=== PATIENT | female | born 1960 | race Caucasian/White ===

== ENCOUNTER 2021-07-27 09:42 | Inpatient (IN) ==
[2021-07-27] MEDS ORDERED: Lactated Ringers 1000 ml BAG 1,000 ML IV ONE (09:56)
[2021-07-27] MEDS ORDERED: Albuterol HFA INHALER 8 gm MDI INH ONE (10:27)
[2021-07-27 10:34] LABS: ABS Basophils 0.2 10^3/ul (0-0.2); ABS Eosinophils 0.8 10^3/ul (0-0.6); ABS Lymphocytes 2.3 10^3/ul (1.0-4.8); ABS Monocytes 0.9 10^3/ul (0-0.8); ABS Neutrophils 9.9 10^3/ul (1.5-7.7); Eosinophil % 5.5 %; Hematocrit 25 % (35-47); Hemoglobin 8.3 g/dL (12.0-16.0); Lymphocyte % 16.2 %; Mean Corpuscular HGB Conc 33 g/dL (31-36); Mean Corpuscular Hemoglobin 24 pg (27-31); Mean Corpuscular Volume 74 fL (80-97); Mean Platelet Volume 7.5 fL (7.4-10.4); Platelet Count 693 10^3/uL (150-450); Red Cell Distribution Width 18 % (10-15)
[2021-07-27 10:45] LABS: Albumin 2.6 g/dL (3.2-5.2); Albumin/Globulin Ratio 0.5 (1-3); Calcium 8.6 mg/dL (8.6-10.3); Globulin 5.5 g/dL (2-4); Potassium 4.1 mmol/L (3.5-5.0); Total Bilirubin 0.4 mg/dL (0.2-1.0); Total Protein 8.1 g/dL (6.4-8.9); eGFR CKD-EPI 101.2 (>60)
[2021-07-27] MEDS ORDERED: Iohexol 300 (CONTRAST) 10 ML SDV IV ONE (10:51)
[2021-07-27 14:13] LABS: Urine Appearance Clear; Urine Bilirubin Negative (Negative); Urine Blood 3+ (Negative); Urine Color Yellow; Urine Glucose Negative (Negative); Urine Ketones Negative (Negative); Urine Nitrite Negative (Negative); Urine Protein Negative (Negative); Urine Specific Gravity 1.027 (1.002-1.030); Urine Urobilinogen Negative (Negative)
[2021-07-27 14:19] LABS: Urine Bacteria Absent (Absent); Urine Red Blood Cell 2+(6-10/hpf) (Absent); Urine Squamous Epithelial Cell Present (Absent); Urine White Blood Cell 1+(6-10/hpf) (Absent)
[2021-07-28] MEDS: NON FORMULARY MED (Budesonide-Glycopyr-Formoterol [Breztri Aerosphere] 160-9-4.8 mcg/actua INH SCH ×3 (02:08→20:27)
[2021-07-28 06:41] LABS: Total Iron Binding Capacity 175 mcg/dL (250-450); Transferrin 125 mg/dL (203-362)
[2021-07-28 06:48] LABS: % Iron Saturation 11 % (15-55); Iron < 20 ug/dL (50-212); Unsaturated Iron Binding < 160 ug/dL
[2021-07-28 07:01] LABS: Ferritin 148.2 ng/mL (11-307)
[2021-07-28 08:12] LABS: ABS Basophils 0.2 10^3/ul (0-0.2); ABS Eosinophils 0.6 10^3/ul (0-0.6); ABS Lymphocytes 2.6 10^3/ul (1.0-4.8); ABS Monocytes 1.1 10^3/ul (0-0.8); ABS Neutrophils 6.2 10^3/ul (1.5-7.7); Eosinophil % 5.3 %; Hematocrit 24 % (35-47); Lymphocyte % 24.5 %; Mean Corpuscular HGB Conc 33 g/dL (31-36); Mean Corpuscular Hemoglobin 24 pg (27-31); Mean Corpuscular Volume 74 fL (80-97); Mean Platelet Volume 7.6 fL (7.4-10.4); Platelet Count 627 10^3/uL (150-450); Red Blood Count 3.28 10^6 /uL (3.70-4.87); Red Cell Distribution Width 18 % (10-15); White Blood Count 10.6 10^3/uL (3.5-10.8)
[2021-07-28 08:35] LABS: INR 1.15 (0.86-1.15)
[2021-07-28 08:45] LABS: Calcium 8.4 mg/dL (8.6-10.3); Potassium 3.8 mmol/L (3.5-5.0); eGFR CKD-EPI 89.4 (>60)
[2021-07-28] MEDS ORDERED: Iohexol 300 (CONTRAST) 10 ML SDV IV ONE (13:44)
[2021-07-28] MEDS: Ondansetron 4 mg VIAL 2 MG/ML 2 ml VIAL IV PRN (21:29)
[2021-07-29 06:14] LABS: ABS Basophils 0.2 10^3/ul (0-0.2); ABS Eosinophils 0.9 10^3/ul (0-0.6); ABS Lymphocytes 3.8 10^3/ul (1.0-4.8); ABS Monocytes 1.4 10^3/ul (0-0.8); ABS Neutrophils 9.7 10^3/ul (1.5-7.7); Eosinophil % 5.4 %; Hematocrit 25 % (35-47); Hemoglobin 7.9 g/dL (12.0-16.0); Mean Corpuscular HGB Conc 32 g/dL (31-36); Mean Corpuscular Hemoglobin 24 pg (27-31); Mean Corpuscular Volume 74 fL (80-97); Mean Platelet Volume 7.5 fL (7.4-10.4); Platelet Count 647 10^3/uL (150-450); Red Blood Count 3.31 10^6 /uL (3.70-4.87); Red Cell Distribution Width 18 % (10-15)
[2021-07-29] MEDS: NON FORMULARY MED (Budesonide-Glycopyr-Formoterol [Breztri Aerosphere] 160-9-4.8 mcg/actua INH SCH ×2 (08:20→23:18)
[2021-07-29] MEDS ORDERED: Flu vaccine *QUAD* 2021-22* 0.5 ML SYRINGE IM ONE (09:00)
[2021-07-29] MEDS: Ondansetron 4 mg VIAL 2 MG/ML 2 ml VIAL IV PRN (19:50)
[2021-07-30] MEDS: NON FORMULARY MED (Budesonide-Glycopyr-Formoterol [Breztri Aerosphere] 160-9-4.8 mcg/actua INH SCH ×2 (07:33→20:57)
[2021-07-30 07:40] LABS: ABS Basophils 0.2 10^3/ul (0-0.2); ABS Eosinophils 0.7 10^3/ul (0-0.6); ABS Lymphocytes 2.4 10^3/ul (1.0-4.8); ABS Neutrophils 6.7 10^3/ul (1.5-7.7); Eosinophil % 6.1 %; Hematocrit 23 % (35-47); Hemoglobin 7.5 g/dL (12.0-16.0); Mean Corpuscular HGB Conc 33 g/dL (31-36); Mean Corpuscular Hemoglobin 24 pg (27-31); Mean Corpuscular Volume 74 fL (80-97); Mean Platelet Volume 7.3 fL (7.4-10.4); Platelet Count 562 10^3/uL (150-450); Red Blood Count 3.09 10^6 /uL (3.70-4.87); Red Cell Distribution Width 18 % (10-15); White Blood Count 10.9 10^3/uL (3.5-10.8)
[2021-07-30 07:53] LABS: Calcium 8.4 mg/dL (8.6-10.3); Potassium 4.2 mmol/L (3.5-5.0); eGFR CKD-EPI 89.4 (>60)
[2021-07-30] MEDS ORDERED: NS 0.9% 1000 ml BAG 1,000 ML IV SCH (14:30)
[2021-07-30] MEDS ORDERED: Enoxaparin 40 MG/0.4 ML SYR SUBCUT SCH (15:00)
[2021-07-31] MEDS: NON FORMULARY MED (Budesonide-Glycopyr-Formoterol [Breztri Aerosphere] 160-9-4.8 mcg/actua INH SCH (07:36)
[2021-07-31 08:58] LABS: Calcium 8.1 mg/dL (8.6-10.3); Magnesium 1.4 mg/dL (1.9-2.7); eGFR CKD-EPI 98.5 (>60)
[2021-07-31 09:01] LABS: ABS Basophils 0.1 10^3/ul (0-0.2); ABS Eosinophils 0.9 10^3/ul (0-0.6); ABS Lymphocytes 2.5 10^3/ul (1.0-4.8); ABS Neutrophils 7.9 10^3/ul (1.5-7.7); Eosinophil % 7.1 %; Hematocrit 21 % (35-47); Hemoglobin 6.8 g/dL (12.0-16.0); Mean Corpuscular HGB Conc 32 g/dL (31-36); Mean Corpuscular Hemoglobin 23 pg (27-31); Mean Corpuscular Volume 73 fL (80-97); Mean Platelet Volume 7.6 fL (7.4-10.4); Nucleated Red Blood Cells % 0.1; Platelet Count 570 10^3/uL (150-450); Red Blood Count 2.92 10^6 /uL (3.70-4.87); Red Cell Distribution Width 18 % (10-15); White Blood Count 12.5 10^3/uL (3.5-10.8)
[2021-07-31] MEDS: Iron Sucrose 200 MG in NS 0.9% 100 ml BAG 100 ML IVPB SCH (09:10)
[2021-07-31] MEDS ORDERED: Magnesium Sulfate IV 3 GM in NS 0.9% 100 ml BAG 100 ML IVPB ONE (09:12)
[2021-07-31] MEDS ORDERED: FLUTICAS/UMECLI/VILANT 200-62.5-25 MDI (NF) INH SCH (12:00)
[2021-07-31] MEDS: CMC:Oral Rinse (Biotene)(NF) 237 ML or 473 ML ORAL RINSE BTL MT PRN ×2 (13:38→21:26)
[2021-07-31] MEDS ORDERED: PEG 3000 GI LAVAGE 1 GALLON PO ONE (16:00)
[2021-07-31] MEDS: fentaNYL 100 mcg/2 ml 50 MCG/ML VIAL IV SLOW PU PRN ×2 (17:39→21:25)
[2021-07-31 21:42] LABS: Urine Appearance Cloudy; Urine Bilirubin Negative (Negative); Urine Blood 3+ (Negative); Urine Color Yellow; Urine Glucose Negative (Negative); Urine Ketones Negative (Negative); Urine Nitrite Negative (Negative); Urine Protein Negative (Negative); Urine Specific Gravity 1.012 (1.002-1.030); Urine Urobilinogen Negative (Negative)
[2021-07-31 21:48] LABS: Urine Bacteria 1+ (Absent); Urine Red Blood Cell 3+(>10/hpf) (Absent); Urine Squamous Epithelial Cell Present (Absent); Urine White Blood Cell 3+(>20/hpf) (Absent)
[2021-08-01] MEDS: fentaNYL 100 mcg/2 ml 50 MCG/ML VIAL IV SLOW PU PRN ×3 (03:09→19:26)
[2021-08-01] MEDS: Ondansetron 4 mg VIAL 2 MG/ML 2 ml VIAL IV PRN ×2 (03:54→10:28)
[2021-08-01] MEDS ORDERED: PEG 3000 GI LAVAGE 1 GALLON PO ONE (06:00)
[2021-08-01 07:37] LABS: ABS Basophils 0.1 10^3/ul (0-0.2); ABS Eosinophils 0.5 10^3/ul (0-0.6); ABS Lymphocytes 1.8 10^3/ul (1.0-4.8); ABS Monocytes 1.2 10^3/ul (0-0.8); Eosinophil % 3.4 %; Hematocrit 22 % (35-47); Hemoglobin 7.1 g/dL (12.0-16.0); Lymphocyte % 12.4 %; Mean Corpuscular HGB Conc 33 g/dL (31-36); Mean Corpuscular Hemoglobin 24 pg (27-31); Mean Corpuscular Volume 74 fL (80-97); Mean Platelet Volume 7.1 fL (7.4-10.4); Platelet Count 592 10^3/uL (150-450); Red Cell Distribution Width 18 % (10-15); White Blood Count 14.7 10^3/uL (3.5-10.8)
[2021-08-01] MEDS: FLUTICAS/UMECLI/VILANT 200-62.5-25 MDI (NF) INH SCH (07:42)
[2021-08-01 07:51] LABS: Calcium 7.9 mg/dL (8.6-10.3); Potassium 3.6 mmol/L (3.5-5.0); eGFR CKD-EPI 100.8 (>60)
[2021-08-01] MEDS: Iron Sucrose 200 MG in NS 0.9% 100 ml BAG 100 ML IVPB SCH (08:54)
[2021-08-01] MEDS ORDERED: fentaNYL 100 mcg/2 ml 50 MCG/ML VIAL ONE (13:23)
[2021-08-01] MEDS ORDERED: Midazolam 10 mg/10 ml VIAL 1 mg/ml 10 ml VIAL (10 mg) ONE (13:23)
[2021-08-01] MEDS ORDERED: NS 0.9% 500 ml BAG 500 ML IV ONE (14:58)
[2021-08-01] MEDS ORDERED: NS 0.9% 1000 ml BAG 1,000 ML IV SCH (17:00)
[2021-08-01 18:01] LABS: Magnesium 1.9 mg/dL (1.9-2.7)
[2021-08-01] MEDS: CMC:Oral Rinse (Biotene)(NF) 237 ML or 473 ML ORAL RINSE BTL MT PRN (21:56)
[2021-08-02] MEDS: fentaNYL 100 mcg/2 ml 50 MCG/ML VIAL IV SLOW PU PRN ×2 (03:58→15:43)
[2021-08-02] MEDS: Ondansetron 4 mg VIAL 2 MG/ML 2 ml VIAL IV PRN (04:06)
[2021-08-02 06:42] LABS: ABS Basophils 0.2 10^3/ul (0-0.2); ABS Eosinophils 0.3 10^3/ul (0-0.6); ABS Lymphocytes 2.1 10^3/ul (1.0-4.8); ABS Monocytes 1.4 10^3/ul (0-0.8); ABS Neutrophils 13.5 10^3/ul (1.5-7.7); Eosinophil % 1.9 %; Hematocrit 24 % (35-47); Hemoglobin 7.6 g/dL (12.0-16.0); Lymphocyte % 11.8 %; Mean Corpuscular HGB Conc 32 g/dL (31-36); Mean Corpuscular Hemoglobin 24 pg (27-31); Mean Corpuscular Volume 75 fL (80-97); Mean Platelet Volume 7.6 fL (7.4-10.4); Platelet Count 672 10^3/uL (150-450); Red Blood Count 3.13 10^6 /uL (3.70-4.87); Red Cell Distribution Width 18 % (10-15); White Blood Count 17.5 10^3/uL (3.5-10.8)
[2021-08-02 06:56] LABS: Calcium 7.9 mg/dL (8.6-10.3); Magnesium 1.5 mg/dL (1.9-2.7); Potassium 3.4 mmol/L (3.5-5.0); eGFR CKD-EPI 99.6 (>60)
[2021-08-02] MEDS: FLUTICAS/UMECLI/VILANT 200-62.5-25 MDI (NF) INH SCH (08:32)
[2021-08-02] MEDS ORDERED: fentaNYL 100 mcg/2 ml 50 MCG/ML VIAL ONE (08:55)
[2021-08-02] MEDS ORDERED: Midazolam 10 mg/10 ml VIAL 1 mg/ml 10 ml VIAL (10 mg) ONE (08:55)
[2021-08-02] MEDS: Iron Sucrose 200 MG in NS 0.9% 100 ml BAG 100 ML IVPB SCH (11:03)
[2021-08-02] MEDS ORDERED: NS 0.9% 1000 ml BAG 1,000 ML IV ONE (11:35)
[2021-08-02] MEDS: Lactated Ringers 1000 ml BAG 1,000 ML IV SCH (19:00)
[2021-08-03] MEDS: Lactated Ringers 1000 ml BAG 1,000 ML IV SCH (05:51)
[2021-08-03] MEDS: Ondansetron 4 mg VIAL 2 MG/ML 2 ml VIAL IV PRN (05:53)
[2021-08-03] MEDS: FLUTICAS/UMECLI/VILANT 200-62.5-25 MDI (NF) INH SCH (08:13)
[2021-08-03] MEDS: Iron Sucrose 200 MG in NS 0.9% 100 ml BAG 100 ML IVPB SCH (08:29)
[2021-08-03 09:59] LABS: Hematocrit 20 % (35-47); Hemoglobin 6.4 g/dL (12.0-16.0); Mean Corpuscular HGB Conc 32 g/dL (31-36); Mean Corpuscular Hemoglobin 24 pg (27-31); Mean Corpuscular Volume 75 fL (80-97); Mean Platelet Volume 7.3 fL (7.4-10.4); Platelet Count 538 10^3/uL (150-450); Red Blood Count 2.66 10^6 /uL (3.70-4.87); Red Cell Distribution Width 18 % (10-15)
[2021-08-03 10:15] LABS: Calcium 7.6 mg/dL (8.6-10.3); Potassium 3.3 mmol/L (3.5-5.0); eGFR CKD-EPI 102.5 (>60)
[2021-08-03 10:45] LABS: ABS Basophils 0.1 10^3/ul (0-0.2); ABS Eosinophils 0.4 10^3/ul (0-0.6); ABS Lymphocytes 1.6 10^3/ul (1.0-4.8); ABS Neutrophils 8.2 10^3/ul (1.5-7.7); Eosinophil % 3.9 %; Lymphocyte % 14.4 %
[2021-08-03 11:05] LABS: Magnesium 1.4 mg/dL (1.9-2.7)
[2021-08-03] MEDS: KCL 20 MEQ/100 ML IVPREMIX 20 MEQ/100 ML BAG IV SCH ×3 (11:48→15:54)
[2021-08-03] MEDS ORDERED: Magnesium Sulfate IV 3 GM in NS 0.9% 100 ml BAG 100 ML IVPB ONE (14:17)
[2021-08-03 15:40] LABS: Hematocrit 21 % (35-47); Hemoglobin 7.1 g/dL (12.0-16.0)
[2021-08-03] MEDS ORDERED: Gadoteridol (CONTRAST) 279.3 MG/ML 10 ML IV ONE (17:13)
[2021-08-03] MEDS: NS 0.9% 1000 ml BAG 1,000 ML IV SCH (20:26)
[2021-08-04] MEDS: Ondansetron 4 mg VIAL 2 MG/ML 2 ml VIAL IV PRN ×3 (02:16→22:39)
[2021-08-04 06:04] LABS: ABS Lymphocytes 0.9 10^3/ul (1.0-4.8); ABS Monocytes 0.1 10^3/ul (0-0.8); ABS Neutrophils 7.5 10^3/ul (1.5-7.7); Hematocrit 21 % (35-47); Hemoglobin 6.6 g/dL (12.0-16.0); Lymphocyte % 10.4 %; Mean Corpuscular HGB Conc 31 g/dL (31-36); Mean Corpuscular Hemoglobin 24 pg (27-31); Mean Corpuscular Volume 77 fL (80-97); Mean Platelet Volume 7.8 fL (7.4-10.4); Platelet Count 623 10^3/uL (150-450); Red Blood Count 2.73 10^6 /uL (3.70-4.87); Red Cell Distribution Width 19 % (10-15); White Blood Count 8.4 10^3/uL (3.5-10.8)
[2021-08-04] MEDS: NS 0.9% 1000 ml BAG 1,000 ML IV SCH ×2 (06:24→18:39)
[2021-08-04 06:26] LABS: Albumin 2.2 g/dL (3.2-5.2); Albumin/Globulin Ratio 0.5 (1-3); Calcium 7.7 mg/dL (8.6-10.3); Globulin 4.2 g/dL (2-4); Magnesium 2.1 mg/dL (1.9-2.7); Potassium 4.1 mmol/L (3.5-5.0); Total Bilirubin 0.3 mg/dL (0.2-1.0); Total Protein 6.4 g/dL (6.4-8.9); eGFR CKD-EPI 103.4 (>60)
[2021-08-04] MEDS: FLUTICAS/UMECLI/VILANT 200-62.5-25 MDI (NF) INH SCH (07:54)
[2021-08-04] MEDS: Iron Sucrose 200 MG in NS 0.9% 100 ml BAG 100 ML IVPB SCH (10:50)
[2021-08-04] MEDS: fentaNYL 100 mcg/2 ml 50 MCG/ML VIAL IV SLOW PU PRN ×2 (11:00→16:26)
[2021-08-05] MEDS ORDERED: Rocuronium 50 mg VIAL 10 mg/ml 5 ml VIAL (50 mg) IV SCH
[2021-08-05] MEDS ORDERED: Bupivacaine 0.25% EPI 200,000 30 ML SDV INJ SCH
[2021-08-05] MEDS: fentaNYL 100 mcg/2 ml 50 MCG/ML VIAL IV SLOW PU PRN ×3 (01:09→11:29)
[2021-08-05 02:01] LABS: Rapid COVID-19 Molecular Undetected (Undetected)
[2021-08-05] MEDS: Ondansetron 4 mg VIAL 2 MG/ML 2 ml VIAL IV PRN (02:37)
[2021-08-05] MEDS: NS 0.9% 1000 ml BAG 1,000 ML IV SCH ×2 (04:47→23:42)
[2021-08-05 06:05] LABS: Hematocrit 24 % (35-47); Hemoglobin 7.9 g/dL (12.0-16.0); Mean Corpuscular HGB Conc 32 g/dL (31-36); Mean Corpuscular Hemoglobin 25 pg (27-31); Mean Corpuscular Volume 78 fL (80-97); Mean Platelet Volume 7.9 fL (7.4-10.4); Platelet Count 572 10^3/uL (150-450); Red Blood Count 3.12 10^6 /uL (3.70-4.87); Red Cell Distribution Width 18 % (10-15); White Blood Count 9.9 10^3/uL (3.5-10.8)
[2021-08-05 06:20] LABS: Calcium 7.5 mg/dL (8.6-10.3); Potassium 3.9 mmol/L (3.5-5.0); eGFR CKD-EPI 102.5 (>60)
[2021-08-05] MEDS: FLUTICAS/UMECLI/VILANT 200-62.5-25 MDI (NF) INH SCH (08:25)
[2021-08-05] MEDS ORDERED: Lidocaine 2% PF 5 ML VIAL ONE ×2 (14:27)
[2021-08-05] MEDS ORDERED: fentaNYL 100 mcg/2 ml 50 MCG/ML VIAL ONE ×3 (14:27→20:05)
[2021-08-05] MEDS ORDERED: Propofol 10 MG/ML 20 ML BTL ONE (14:27)
[2021-08-05] MEDS ORDERED: Phenylephrine IV 10 MG/ML 1 ml VIAL ONE (14:28)
[2021-08-05] MEDS ORDERED: Midazolam 2 mg/2 ml VIAL 1 mg/ml 2 ml VIAL (2 mg) ONE (14:29)
[2021-08-05] MEDS ORDERED: Albuterol/Ipratropium NEB.SOL (2.5/0.5 MG) 3 ML NEB.SOLN INH ONE (15:21)
[2021-08-05] MEDS ORDERED: Clindamycin 900 MG/D5W BAG 900 MG/50 ML BAG IVPB ONE (15:22)
[2021-08-05] MEDS ORDERED: Albuterol/Ipratropium NEB.SOL (2.5/0.5 MG) 3 ML NEB.SOLN ONE (15:24)
[2021-08-05 15:58] LABS: PCO2 Arterial 38 mmHg (35-45); PO2 Arterial 106 mmHg (80-100)
[2021-08-05 18:02] LABS: PCO2 Arterial 38 mmHg (35-45); PO2 Arterial 180 mmHg (80-100)
[2021-08-05] MEDS ORDERED: Naloxone 0.4 mg VIAL 0.4 mg/ml 1 ml VIAL IV PRN (18:50)
[2021-08-05] MEDS ORDERED: DiMENhydriNATE IV 50 mg/ml 1 ml VIAL IV PUSH PRN (18:50)
[2021-08-05] MEDS ORDERED: fentaNYL 100 mcg/2 ml 50 MCG/ML VIAL IV PRN (18:50)
[2021-08-05] MEDS ORDERED: Ondansetron 4 mg VIAL 2 MG/ML 2 ml VIAL ONE (18:55)
[2021-08-05] MEDS ORDERED: Dexamethasone IV 4 MG/ML VIAL 1 ml VIAL ONE (18:55)
[2021-08-06 09:07] LABS: ABS Lymphocytes 0.7 10^3/ul (1.0-4.8); ABS Monocytes 0.7 10^3/ul (0-0.8); ABS Neutrophils 12.3 10^3/ul (1.5-7.7); Hematocrit 27 % (35-47); Hemoglobin 8.9 g/dL (12.0-16.0); Lymphocyte % 5.3 %; Mean Corpuscular HGB Conc 33 g/dL (31-36); Mean Corpuscular Hemoglobin 25 pg (27-31); Mean Corpuscular Volume 78 fL (80-97); Mean Platelet Volume 7.7 fL (7.4-10.4); Platelet Count 620 10^3/uL (150-450); Red Blood Count 3.53 10^6 /uL (3.70-4.87); Red Cell Distribution Width 18 % (10-15); White Blood Count 13.8 10^3/uL (3.5-10.8)
[2021-08-06] MEDS ORDERED: fentaNYL 100 mcg/2 ml 50 MCG/ML VIAL IV SLOW PU PRN (09:10)
[2021-08-06] MEDS: FLUTICAS/UMECLI/VILANT 200-62.5-25 MDI (NF) INH SCH (09:12)
[2021-08-06 09:23] LABS: Potassium 3.8 mmol/L (3.5-5.0); eGFR CKD-EPI 100.8 (>60)
[2021-08-06] MEDS: oxyCODONE SR 10 mg TAB PO SCH ×2 (09:42→20:39)
[2021-08-06] MEDS: NS 0.9% 1000 ml BAG 1,000 ML IV SCH ×2 (09:46→19:44)
[2021-08-07] MEDS: Ondansetron 4 mg VIAL 2 MG/ML 2 ml VIAL IV PRN (00:13)
[2021-08-07] MEDS: Albuterol HFA INHALER 8 gm MDI INH PRN (06:09)
[2021-08-07] MEDS: FLUTICAS/UMECLI/VILANT 200-62.5-25 MDI (NF) INH SCH ×2 (06:10→07:12)
[2021-08-07 06:58] LABS: ABS Basophils 0.1 10^3/ul (0-0.2); ABS Lymphocytes 1.4 10^3/ul (1.0-4.8); ABS Monocytes 1.4 10^3/ul (0-0.8); ABS Neutrophils 13.2 10^3/ul (1.5-7.7); Eosinophil % 0.1 %; Hematocrit 28 % (35-47); Lymphocyte % 8.6 %; Mean Corpuscular HGB Conc 32 g/dL (31-36); Mean Corpuscular Hemoglobin 25 pg (27-31); Mean Corpuscular Volume 79 fL (80-97); Mean Platelet Volume 7.6 fL (7.4-10.4); Platelet Count 563 10^3/uL (150-450); Red Blood Count 3.57 10^6 /uL (3.70-4.87); Red Cell Distribution Width 19 % (10-15)
[2021-08-07 07:13] LABS: Calcium 7.6 mg/dL (8.6-10.3); Magnesium 1.4 mg/dL (1.9-2.7); Potassium 3.7 mmol/L (3.5-5.0); eGFR CKD-EPI 104.3 (>60)
[2021-08-07 08:56] LABS: C Reactive Protein 15.35 mg/L (<8.01)
[2021-08-07] MEDS: oxyCODONE SR 10 mg TAB PO SCH ×2 (09:14→20:34)
[2021-08-07] MEDS: NS 0.9% 1000 ml BAG 1,000 ML IV SCH ×2 (09:14→20:32)
[2021-08-07] MEDS ORDERED: Magnesium Sulf 4 GM/100 ML IV 4,000 MG/100 ML BAG IVPB ONE (09:24)
[2021-08-07] MEDS: Potassium Chlor 10 meq TAB PO SCH ×2 (11:03→13:30)
[2021-08-08 04:52] LABS: ABS Lymphocytes 0.8 10^3/ul (1.0-4.8); ABS Monocytes 0.9 10^3/ul (0-0.8); ABS Neutrophils 11.1 10^3/ul (1.5-7.7); Hematocrit 28 % (35-47); Lymphocyte % 6.1 %; Mean Corpuscular HGB Conc 32 g/dL (31-36); Mean Corpuscular Hemoglobin 25 pg (27-31); Mean Corpuscular Volume 78 fL (80-97); Mean Platelet Volume 7.7 fL (7.4-10.4); Platelet Count 536 10^3/uL (150-450); Red Blood Count 3.54 10^6 /uL (3.70-4.87); Red Cell Distribution Width 19 % (10-15); White Blood Count 12.8 10^3/uL (3.5-10.8)
[2021-08-08 05:33] LABS: Albumin 2.4 g/dL (3.2-5.2); Albumin/Globulin Ratio 0.7 (1-3); Calcium 7.3 mg/dL (8.6-10.3); Globulin 3.6 g/dL (2-4); Magnesium 2.2 mg/dL (1.9-2.7); Phosphorus 1.9 mg/dL (2.5-5.0); Total Bilirubin 0.3 mg/dL (0.2-1.0); eGFR CKD-EPI 103.4 (>60)
[2021-08-08] MEDS: NS 0.9% 1000 ml BAG 1,000 ML IV SCH (07:39)
[2021-08-08] MEDS: FLUTICAS/UMECLI/VILANT 200-62.5-25 MDI (NF) INH SCH (09:16)
[2021-08-08] MEDS: oxyCODONE SR 10 mg TAB PO SCH ×2 (09:45→20:54)
[2021-08-08] MEDS: Albuterol HFA INHALER 8 gm MDI INH PRN (20:53)
[2021-08-09 05:38] LABS: ABS Monocytes 0.9 10^3/ul (0-0.8); Hematocrit 32 % (35-47); Hemoglobin 9.9 g/dL (12.0-16.0); Lymphocyte % 6.3 %; Mean Corpuscular HGB Conc 31 g/dL (31-36); Mean Corpuscular Hemoglobin 25 pg (27-31); Mean Corpuscular Volume 79 fL (80-97); Mean Platelet Volume 7.8 fL (7.4-10.4); Platelet Count 544 10^3/uL (150-450); Red Cell Distribution Width 21 % (10-15)
[2021-08-09 05:58] LABS: C Reactive Protein 8.09 mg/L (<8.01); Calcium 7.9 mg/dL (8.6-10.3); Magnesium 1.7 mg/dL (1.9-2.7); eGFR CKD-EPI 103.9 (>60)
[2021-08-09] MEDS: oxyCODONE SR 10 mg TAB PO SCH (09:05)
[2021-08-09] MEDS: FLUTICAS/UMECLI/VILANT 200-62.5-25 MDI (NF) INH SCH (09:38)
[2021-08-09] MEDS: Albuterol HFA INHALER 8 gm MDI INH PRN (17:16)
[2021-08-09 17:21] VITALS: BP 106/74
== END 2021-08-09 23:57 | disposition home health service (06) | DRG 330 ==
LOC: EDACCT# → ED 09:42 → EDHOLD 09:42 → MED 19:27 → SUATTDRO 07-28 11:00 → MED 08-02 11:36 → SSU 08-05 20:38
PROVIDERS: ADMIT Student in an Organized Health Care Education/Training Program; ATTEND Internal Medicine

== ENCOUNTER 2021-08-19 08:16 | Inpatient (IN) ==
[2021-08-19] MEDS ORDERED: Lactated Ringers 1000 ml BAG IV.FLUID IV ONE (09:05)
[2021-08-19] MEDS: fentaNYL 100 mcg/2 ml 50 MCG/ML VIAL IV SLOW PU PRN ×4 (09:36→16:31)
[2021-08-19] MEDS ORDERED: Cefepime 1 GM in Dextrose 1 GM/50 ML BAG IV ONE (09:45)
[2021-08-19 09:57] LABS: Hematocrit 33 % (35-47); Hemoglobin 10.6 g/dL (12.0-16.0); Mean Corpuscular HGB Conc 32 g/dL (31-36); Mean Corpuscular Hemoglobin 26 pg (27-31); Mean Corpuscular Volume 82 fL (80-97); Mean Platelet Volume 7.7 fL (7.4-10.4); Platelet Count 356 10^3/uL (150-450); Red Blood Count 4.07 10^6 /uL (3.70-4.87); Red Cell Distribution Width 27 % (10-15); White Blood Count 28.1 10^3/uL (3.5-10.8)
[2021-08-19 09:58] LABS: ABS Basophils 0.1 10^3/ul (0-0.2); ABS Lymphocytes 1.2 10^3/ul (1.0-4.8); ABS Monocytes 1.2 10^3/ul (0-0.8); ABS Neutrophils 25.6 10^3/ul (1.5-7.7); Lymphocyte % 4.2 %
[2021-08-19 10:06] LABS: Activated Partial Thrombo Time 27.7 seconds (26.0-38.0); INR 1.22 (0.86-1.15)
[2021-08-19 10:13] LABS: Albumin 2.9 g/dL (3.2-5.2); Albumin/Globulin Ratio 0.9 (1-3); C Reactive Protein 170.09 mg/L (<8.01); Calcium 7.8 mg/dL (8.6-10.3); Globulin 3.2 g/dL (2-4); Potassium 3.1 mmol/L (3.5-5.0); Total Bilirubin 0.9 mg/dL (0.2-1.0); Total Protein 6.1 g/dL (6.4-8.9); eGFR CKD-EPI 99.2 (>60)
[2021-08-19 10:14] LABS: Troponin I 0.01 ng/mL (<0.03)
[2021-08-19] MEDS ORDERED: Iohexol 350 (CONTRAST) 500 ML MDV IV ONE ×2 (10:42→13:18)
[2021-08-19 11:00] LABS: Anisocytosis 2+; Hypochromasia 1+
[2021-08-19] MEDS ORDERED: Albuterol HFA INHALER 8 gm MDI INH PRN (15:09)
[2021-08-19] MEDS ORDERED: Lactated Ringers 1000 ml BAG 1,000 ML IV ONE (15:11)
[2021-08-19] MEDS ORDERED: Cefepime 1 GM IV - ED ONCE IV ONE (16:00)
[2021-08-19] MEDS ORDERED: Azithromycin 500 MG IV - ED ONCE IVPB ONE (16:00)
[2021-08-19] MEDS ORDERED: oxyCODONE SR 10 mg TAB PO SCH (16:00)
[2021-08-19] MEDS: Enoxaparin 40 MG/0.4 ML SYR SUBCUT SCH (16:36)
[2021-08-19 17:06] LABS: Urine Appearance Turbid; Urine Bilirubin Negative (Negative); Urine Blood 2+ (Negative); Urine Color Yellow; Urine Glucose Negative (Negative); Urine Ketones Negative (Negative); Urine Nitrite Negative (Negative); Urine Protein 2+(100 mg/dL) (Negative); Urine Specific Gravity 1.048 (1.002-1.030); Urine Urobilinogen Negative (Negative)
[2021-08-19 17:20] LABS: Urine Bacteria 2+ (Absent); Urine Red Blood Cell 3+(>10/hpf) (Absent); Urine Squamous Epithelial Cell Present (Absent); Urine White Blood Cell 3+(>20/hpf) (Absent)
[2021-08-19] MEDS ORDERED: Albuterol 2.5mg/3 ml (0.083%) NEB.SOLN INH SCH (19:00)
[2021-08-19] MEDS: Potassium Chloride IV 40 MEQ in Lactated Ringers 1000 ml BAG 1,000 ML IVPB SCH (20:23)
[2021-08-19] MEDS ORDERED: Albuterol 2.5mg/3 ml (0.083%) NEB.SOLN INH PRN (20:24)
[2021-08-19] MEDS: NON FORMULARY MED (Budesonide-Glycopyr-Formoterol [Breztri Aerosphere] 160-9-4.8 mcg/actua INH SCH (20:39)
[2021-08-19] MEDS ORDERED: Lactated Ringers 500 ml BAG 500 ML IV ONE (23:39)
[2021-08-20] MEDS: Cefepime 1 GM in Dextrose 1 GM/50 ML BAG IV SCH ×2 (03:04→16:27)
[2021-08-20] MEDS ORDERED: Lactated Ringers 500 ml BAG 500 ML IV ONE (03:26)
[2021-08-20] MEDS: Lactated Ringers 1000 ml BAG 1,000 ML IV SCH ×2 (03:55→11:13)
[2021-08-20] MEDS ORDERED: Cefepime ADVAN 1 GM in NS 0.9% 50 ML 50 ML IVPB SCH (04:00)
[2021-08-20 07:39] LABS: Hematocrit 24 % (35-47); Hemoglobin 7.6 g/dL (12.0-16.0); Mean Corpuscular HGB Conc 32 g/dL (31-36); Mean Corpuscular Hemoglobin 27 pg (27-31); Mean Corpuscular Volume 83 fL (80-97); Mean Platelet Volume 7.5 fL (7.4-10.4); Platelet Count 273 10^3/uL (150-450); Red Blood Count 2.88 10^6 /uL (3.70-4.87); Red Cell Distribution Width 27 % (10-15); White Blood Count 18.6 10^3/uL (3.5-10.8)
[2021-08-20 07:46] LABS: ABS Lymphocytes 0.4 10^3/ul (1.0-4.8); ABS Monocytes 0.7 10^3/ul (0-0.8); ABS Neutrophils 17.5 10^3/ul (1.5-7.7); Lymphocyte % 1.9 %
[2021-08-20 07:56] LABS: Albumin 2.2 g/dL (3.2-5.2); Albumin/Globulin Ratio 0.8 (1-3); Calcium 7.2 mg/dL (8.6-10.3); Globulin 2.6 g/dL (2-4); Potassium 3.7 mmol/L (3.5-5.0); Total Bilirubin 0.5 mg/dL (0.2-1.0); Total Protein 4.8 g/dL (6.4-8.9); eGFR CKD-EPI 108.6 (>60)
[2021-08-20] MEDS: fentaNYL 100 mcg/2 ml 50 MCG/ML VIAL IV SLOW PU PRN (08:34)
[2021-08-20] MEDS: Potassium Chloride IV 40 MEQ in Lactated Ringers 1000 ml BAG 1,000 ML IVPB SCH (08:38)
[2021-08-20] MEDS: NON FORMULARY MED (Budesonide-Glycopyr-Formoterol [Breztri Aerosphere] 160-9-4.8 mcg/actua INH SCH (08:49)
[2021-08-20] MEDS ORDERED: Potassium Chlor 20 meq TAB.ER PO ONE (09:14)
[2021-08-20] MEDS ORDERED: fentaNYL 100 mcg/2 ml 50 MCG/ML VIAL IV SLOW PU PRN (09:22)
[2021-08-20 09:34] LABS: Magnesium 1.3 mg/dL (1.9-2.7)
[2021-08-20 09:48] LABS: C Reactive Protein 168.5 mg/L (<8.01)
[2021-08-20] MEDS ORDERED: Magnesium Sulfate IV 3 GM in NS 0.9% 100 ml BAG 100 ML IVPB ONE (09:48)
[2021-08-20] MEDS ORDERED: Magnesium Sulfate 2 GM IV (Premix) IVPB ONE (10:00)
[2021-08-20] MEDS ORDERED: Magnesium Sulfate 1 GM IV 1 GM/100 ML BAG IV ONE (11:00)
[2021-08-20] MEDS ORDERED: Azithromycin 500 mg/250 ml NS 500 MG/250 ML BAG IVPB SCH (16:00)
[2021-08-20] MEDS: Enoxaparin 40 MG/0.4 ML SYR SUBCUT SCH (16:28)
[2021-08-20] MEDS: SPIRIVA Respimat (tiotropium) 2.5 mcg/inh Inhaler INH SCH (19:50)
[2021-08-20] MEDS: Mometasone/Formoter 200/5 MDI INH SCH (19:50)
[2021-08-21] MEDS: Cefepime 1 GM in Dextrose 1 GM/50 ML BAG IV SCH (03:43)
[2021-08-21 07:02] LABS: Hematocrit 25 % (35-47); Hemoglobin 8.2 g/dL (12.0-16.0); Mean Corpuscular HGB Conc 33 g/dL (31-36); Mean Corpuscular Hemoglobin 27 pg (27-31); Mean Corpuscular Volume 83 fL (80-97); Mean Platelet Volume 8.3 fL (7.4-10.4); Platelet Count 301 10^3/uL (150-450); Red Blood Count 3.04 10^6 /uL (3.70-4.87); Red Cell Distribution Width 27 % (10-15); White Blood Count 18.3 10^3/uL (3.5-10.8)
[2021-08-21 07:08] LABS: ABS Lymphocytes 0.5 10^3/ul (1.0-4.8); ABS Monocytes 0.5 10^3/ul (0-0.8); ABS Neutrophils 17.2 10^3/ul (1.5-7.7); Lymphocyte % 2.9 %
[2021-08-21 07:20] LABS: Anion Gap 7 mmol/L (2-11); Blood Urea Nitrogen 32 mg/dL (6-24); CO2 Carbon Dioxide 23 mmol/L (22-32); Calcium 7.6 mg/dL (8.6-10.3); Chloride 103 mmol/L (101-111); Glucose 109 mg/dL (70-100); Potassium 4.7 mmol/L (3.5-5.0); Sodium 133 mmol/L (135-145); eGFR CKD-EPI 103.4 (>60)
[2021-08-21] MEDS: SPIRIVA Respimat (tiotropium) 2.5 mcg/inh Inhaler INH SCH (07:57)
[2021-08-21] MEDS: Mometasone/Formoter 200/5 MDI INH SCH ×2 (07:58→20:15)
[2021-08-21 09:40] LABS: % Iron Saturation 59 % (15-55); Iron 95 ug/dL (50-212); Total Iron Binding Capacity 161 mcg/dL (250-450); Transferrin 115 mg/dL (203-362); Unsaturated Iron Binding 66 ug/dL
[2021-08-21 10:13] LABS: Ferritin > 1500.0 ng/mL (11-307)
[2021-08-21 10:17] LABS: Vitamin B12 220 pg/mL (180-914)
[2021-08-21] MEDS ORDERED: cefTRIAXone 1 gm/50 mL NS BAG 1 GM/50 ML BAG IVPB SCH (12:00)
[2021-08-21] MEDS ORDERED: Cyanocobalamin INJ 1,000 MCG/ML VIAL 1 ML VIAL IM ONE (12:00)
[2021-08-21] MEDS: Enoxaparin 40 MG/0.4 ML SYR SUBCUT SCH ×2 (12:40→20:04)
[2021-08-21] MEDS ORDERED: cefTRIAXone 2 GM ADDV.VIAL 2 GM in NS 0.9% 100 ml BAG 100 ML IV SCH (15:00)
[2021-08-21] MEDS ORDERED: cefTRIAXone 1 gm/50 mL NS BAG 1 GM/50 ML BAG IVPB ONE (15:30)
[2021-08-21] MEDS ORDERED: Ondansetron 4 mg VIAL 2 MG/ML 2 ml VIAL IV PRN (18:26)
[2021-08-21] MEDS ORDERED: Lorazepam PYXIS KEY PRN (19:01)
[2021-08-21] MEDS ORDERED: LORazepam 2 mg VIAL 1 ml IV PUSH ONE (19:01)
[2021-08-21 19:38] LABS: Hematocrit 29 % (35-47); Mean Corpuscular HGB Conc 31 g/dL (31-36); Mean Corpuscular Hemoglobin 26 pg (27-31); Mean Corpuscular Volume 83 fL (80-97); Platelet Count 344 10^3/uL (150-450); Red Blood Count 3.46 10^6 /uL (3.70-4.87); Red Cell Distribution Width 28 % (10-15)
[2021-08-21 19:41] LABS: ABS Basophils 0.2 10^3/ul (0-0.2); ABS Lymphocytes 1.3 10^3/ul (1.0-4.8); ABS Monocytes 0.4 10^3/ul (0-0.8); ABS Neutrophils 13.1 10^3/ul (1.5-7.7); Lymphocyte % 8.4 %
[2021-08-21] MEDS: Nitrofurantoin (monohydrate/macrocrystals) 100 mg CAP PO SCH (20:22)
[2021-08-22 06:58] LABS: Hematocrit 28 % (35-47); Hemoglobin 9.2 g/dL (12.0-16.0); Mean Corpuscular HGB Conc 33 g/dL (31-36); Mean Corpuscular Hemoglobin 27 pg (27-31); Mean Corpuscular Volume 83 fL (80-97); Platelet Count 328 10^3/uL (150-450); Red Blood Count 3.39 10^6 /uL (3.70-4.87); Red Cell Distribution Width 27 % (10-15); White Blood Count 14.6 10^3/uL (3.5-10.8)
[2021-08-22 06:59] LABS: ABS Lymphocytes 0.3 10^3/ul (1.0-4.8); ABS Monocytes 0.6 10^3/ul (0-0.8); ABS Neutrophils 13.7 10^3/ul (1.5-7.7)
[2021-08-22 07:15] LABS: Albumin 2.7 g/dL (3.2-5.2); Albumin/Globulin Ratio 0.8 (1-3); Calcium 8.3 mg/dL (8.6-10.3); Globulin 3.3 g/dL (2-4); Magnesium 1.5 mg/dL (1.9-2.7); Potassium 4.5 mmol/L (3.5-5.0); Total Bilirubin 0.3 mg/dL (0.2-1.0); eGFR CKD-EPI 97.5 (>60)
[2021-08-22] MEDS: SPIRIVA Respimat (tiotropium) 2.5 mcg/inh Inhaler INH SCH (08:17)
[2021-08-22] MEDS: Mometasone/Formoter 200/5 MDI INH SCH ×2 (08:18→20:09)
[2021-08-22] MEDS ORDERED: Magnesium Sulf 4 GM/100 ML IV 4,000 MG/100 ML BAG IVPB ONE (09:00)
[2021-08-22] MEDS: Nitrofurantoin (monohydrate/macrocrystals) 100 mg CAP PO SCH ×2 (09:31→21:32)
[2021-08-22] MEDS: Enoxaparin 40 MG/0.4 ML SYR SUBCUT SCH (09:31)
[2021-08-22] MEDS ORDERED: cefTRIAXone 2 GM ADDV.VIAL 2 GM in NS 0.9% 100 ml BAG 100 ML IV SCH (14:00)
[2021-08-23 05:35] LABS: Hematocrit 29 % (35-47); Hemoglobin 9.2 g/dL (12.0-16.0); Mean Corpuscular HGB Conc 32 g/dL (31-36); Mean Corpuscular Hemoglobin 27 pg (27-31); Mean Corpuscular Volume 84 fL (80-97); Mean Platelet Volume 8.2 fL (7.4-10.4); Platelet Count 332 10^3/uL (150-450); Red Blood Count 3.41 10^6 /uL (3.70-4.87); Red Cell Distribution Width 26 % (10-15); White Blood Count 11.9 10^3/uL (3.5-10.8)
[2021-08-23 05:49] LABS: Magnesium 1.9 mg/dL (1.9-2.7); Potassium 4.6 mmol/L (3.5-5.0); eGFR CKD-EPI 104.8 (>60)
[2021-08-23] MEDS ORDERED: Magnesium Sulfate IV 1GM/100ML 1 GM/100 ML BAG IV ONE (07:32)
[2021-08-23] MEDS: SPIRIVA Respimat (tiotropium) 2.5 mcg/inh Inhaler INH SCH (08:21)
[2021-08-23] MEDS: Mometasone/Formoter 200/5 MDI INH SCH ×2 (08:22→19:45)
[2021-08-23] MEDS: Nitrofurantoin (monohydrate/macrocrystals) 100 mg CAP PO SCH ×2 (09:44→22:26)
[2021-08-24 06:04] LABS: Hematocrit 28 % (35-47); Hemoglobin 9.1 g/dL (12.0-16.0); Mean Corpuscular HGB Conc 32 g/dL (31-36); Mean Corpuscular Hemoglobin 27 pg (27-31); Mean Corpuscular Volume 84 fL (80-97); Mean Platelet Volume 8.1 fL (7.4-10.4); Platelet Count 354 10^3/uL (150-450); Red Cell Distribution Width 26 % (10-15); White Blood Count 18.5 10^3/uL (3.5-10.8)
[2021-08-24 06:24] LABS: ABS Lymphocytes 0.3 10^3/ul (1.0-4.8); ABS Monocytes 0.7 10^3/ul (0-0.8); ABS Neutrophils 17.4 10^3/ul (1.5-7.7); Lymphocyte % 1.8 %
[2021-08-24 06:35] LABS: Albumin 2.8 g/dL (3.2-5.2); Calcium 8.1 mg/dL (8.6-10.3); Globulin 2.9 g/dL (2-4); Magnesium 1.6 mg/dL (1.9-2.7); Potassium 4.7 mmol/L (3.5-5.0); Total Bilirubin 0.3 mg/dL (0.2-1.0); Total Protein 5.7 g/dL (6.4-8.9)
[2021-08-24] MEDS ORDERED: Magnesium Sulf 4 GM/100 ML IV 4,000 MG/100 ML BAG IVPB ONE (06:48)
[2021-08-24] MEDS: SPIRIVA Respimat (tiotropium) 2.5 mcg/inh Inhaler INH SCH (08:00)
[2021-08-24] MEDS: Mometasone/Formoter 200/5 MDI INH SCH ×2 (08:00→19:47)
[2021-08-24] MEDS: Nitrofurantoin (monohydrate/macrocrystals) 100 mg CAP PO SCH ×2 (09:05→22:40)
[2021-08-24] MEDS: oxyCODONE SR 10 mg TAB PO SCH ×2 (12:34→22:41)
[2021-08-25 06:18] LABS: Hematocrit 29 % (35-47); Hemoglobin 9.2 g/dL (12.0-16.0); Mean Corpuscular HGB Conc 32 g/dL (31-36); Mean Corpuscular Hemoglobin 27 pg (27-31); Mean Corpuscular Volume 84 fL (80-97); Mean Platelet Volume 8.1 fL (7.4-10.4); Platelet Count 364 10^3/uL (150-450); Red Blood Count 3.41 10^6 /uL (3.70-4.87); Red Cell Distribution Width 26 % (10-15); White Blood Count 16.5 10^3/uL (3.5-10.8)
[2021-08-25 06:28] LABS: Albumin 2.8 g/dL (3.2-5.2); Calcium 8.1 mg/dL (8.6-10.3); Globulin 2.9 g/dL (2-4); Potassium 4.8 mmol/L (3.5-5.0); Total Bilirubin 0.3 mg/dL (0.2-1.0); Total Protein 5.7 g/dL (6.4-8.9); eGFR CKD-EPI 105.8 (>60)
[2021-08-25 07:46] LABS: ABS Lymphocytes 0.4 10^3/ul (1.0-4.8); ABS Monocytes 0.6 10^3/ul (0-0.8); ABS Neutrophils 15.4 10^3/ul (1.5-7.7); Eosinophil % 0.1 %; Lymphocyte % 2.4 %
[2021-08-25] MEDS: Mometasone/Formoter 200/5 MDI INH SCH ×2 (08:28→19:22)
[2021-08-25] MEDS: SPIRIVA Respimat (tiotropium) 2.5 mcg/inh Inhaler INH SCH (08:29)
[2021-08-25] MEDS: Nitrofurantoin (monohydrate/macrocrystals) 100 mg CAP PO SCH ×2 (10:02→22:45)
[2021-08-25] MEDS: oxyCODONE SR 10 mg TAB PO SCH ×2 (10:03→22:47)
[2021-08-26 05:30] LABS: Hematocrit 29 % (35-47); Hemoglobin 9.1 g/dL (12.0-16.0); Mean Corpuscular HGB Conc 32 g/dL (31-36); Mean Corpuscular Hemoglobin 27 pg (27-31); Mean Corpuscular Volume 83 fL (80-97); Mean Platelet Volume 7.6 fL (7.4-10.4); Platelet Count 395 10^3/uL (150-450); Red Blood Count 3.43 10^6 /uL (3.70-4.87); Red Cell Distribution Width 26 % (10-15)
[2021-08-26 05:47] LABS: Albumin 2.9 g/dL (3.2-5.2); Albumin/Globulin Ratio 1.1 (1-3); Calcium 8.1 mg/dL (8.6-10.3); Globulin 2.7 g/dL (2-4); Potassium 4.8 mmol/L (3.5-5.0); Total Bilirubin 0.3 mg/dL (0.2-1.0); Total Protein 5.6 g/dL (6.4-8.9); eGFR CKD-EPI 106.9 (>60)
[2021-08-26 07:52] LABS: Magnesium 1.6 mg/dL (1.9-2.7)
[2021-08-26] MEDS: Mometasone/Formoter 200/5 MDI INH SCH ×2 (08:36→20:14)
[2021-08-26] MEDS: SPIRIVA Respimat (tiotropium) 2.5 mcg/inh Inhaler INH SCH (08:39)
[2021-08-26] MEDS ORDERED: Magnesium Sulf 4 GM/100 ML IV 4,000 MG/100 ML BAG IVPB ONE (09:00)
[2021-08-26] MEDS: oxyCODONE SR 10 mg TAB PO SCH ×2 (10:21→22:14)
[2021-08-27 07:01] LABS: Hematocrit 28 % (35-47); Hemoglobin 9.4 g/dL (12.0-16.0); Mean Corpuscular HGB Conc 33 g/dL (31-36); Mean Corpuscular Hemoglobin 28 pg (27-31); Mean Corpuscular Volume 83 fL (80-97); Platelet Count 399 10^3/uL (150-450); Red Blood Count 3.37 10^6 /uL (3.70-4.87); Red Cell Distribution Width 27 % (10-15); White Blood Count 14.8 10^3/uL (3.5-10.8)
[2021-08-27 07:14] LABS: Magnesium 1.8 mg/dL (1.9-2.7); Phosphorus 3.4 mg/dL (2.5-5.0); Potassium 4.7 mmol/L (3.5-5.0); eGFR CKD-EPI 106.4 (>60)
[2021-08-27] MEDS: SPIRIVA Respimat (tiotropium) 2.5 mcg/inh Inhaler INH SCH (08:17)
[2021-08-27] MEDS: Mometasone/Formoter 200/5 MDI INH SCH ×2 (08:17→20:25)
[2021-08-27] MEDS: oxyCODONE SR 10 mg TAB PO SCH ×2 (08:34→21:12)
[2021-08-28 06:45] LABS: Hematocrit 29 % (35-47); Hemoglobin 9.4 g/dL (12.0-16.0); Mean Corpuscular HGB Conc 33 g/dL (31-36); Mean Corpuscular Hemoglobin 28 pg (27-31); Mean Corpuscular Volume 85 fL (80-97); Platelet Count 419 10^3/uL (150-450); Red Blood Count 3.43 10^6 /uL (3.70-4.87); Red Cell Distribution Width 27 % (10-15); White Blood Count 16.9 10^3/uL (3.5-10.8)
[2021-08-28 07:03] LABS: Calcium 8.1 mg/dL (8.6-10.3); Magnesium 1.6 mg/dL (1.9-2.7); Potassium 4.5 mmol/L (3.5-5.0)
[2021-08-28 07:31] LABS: Hypochromasia 2+; Target Cells 2+
[2021-08-28] MEDS: Mometasone/Formoter 200/5 MDI INH SCH ×2 (07:55→20:25)
[2021-08-28] MEDS: SPIRIVA Respimat (tiotropium) 2.5 mcg/inh Inhaler INH SCH (07:56)
[2021-08-28] MEDS: oxyCODONE SR 10 mg TAB PO SCH ×2 (08:16→20:11)
[2021-08-28 08:17] LABS: ABS Lymphocytes 0.3 10^3/ul (1.0-4.8); ABS Monocytes 0.6 10^3/ul (0-0.8); Lymphocyte % 1.6 %
[2021-08-28] MEDS ORDERED: Magnesium Sulf 4 GM/100 ML IV 4,000 MG/100 ML BAG IVPB ONE (13:00)
[2021-08-29 05:52] LABS: Hematocrit 29 % (35-47); Hemoglobin 9.5 g/dL (12.0-16.0); Mean Corpuscular HGB Conc 33 g/dL (31-36); Mean Corpuscular Hemoglobin 28 pg (27-31); Mean Corpuscular Volume 85 fL (80-97); Mean Platelet Volume 7.8 fL (7.4-10.4); Platelet Count 453 10^3/uL (150-450); Red Cell Distribution Width 27 % (10-15); White Blood Count 18.8 10^3/uL (3.5-10.8)
[2021-08-29 06:03] LABS: ABS Lymphocytes 0.2 10^3/ul (1.0-4.8); ABS Monocytes 0.8 10^3/ul (0-0.8); ABS Neutrophils 17.8 10^3/ul (1.5-7.7); Lymphocyte % 1.2 %
[2021-08-29 06:18] LABS: Calcium 7.8 mg/dL (8.6-10.3); Magnesium 2.1 mg/dL (1.9-2.7); Phosphorus 2.4 mg/dL (2.5-5.0); Potassium 4.7 mmol/L (3.5-5.0); eGFR CKD-EPI 98.1 (>60)
[2021-08-29] MEDS: SPIRIVA Respimat (tiotropium) 2.5 mcg/inh Inhaler INH SCH (07:44)
[2021-08-29] MEDS: Mometasone/Formoter 200/5 MDI INH SCH ×2 (07:44→19:51)
[2021-08-29] MEDS ORDERED: Ondansetron ODT 4 mg TAB 4 MG TAB SL PRN (08:19)
[2021-08-29] MEDS: oxyCODONE SR 10 mg TAB PO SCH ×2 (10:53→21:27)
[2021-08-29 13:14] LABS: Rapid COVID-19 Molecular Undetected (Undetected)
[2021-08-29] MEDS ORDERED: Sulfamethox/Trimethoprim DS TAB 800/160 mg PO SCH (21:00)
[2021-08-30 05:26] LABS: Hematocrit 29 % (35-47); Hemoglobin 9.3 g/dL (12.0-16.0); Mean Corpuscular HGB Conc 32 g/dL (31-36); Mean Corpuscular Hemoglobin 27 pg (27-31); Mean Corpuscular Volume 85 fL (80-97); Mean Platelet Volume 7.4 fL (7.4-10.4); Platelet Count 485 10^3/uL (150-450); Red Blood Count 3.39 10^6 /uL (3.70-4.87); Red Cell Distribution Width 27 % (10-15); White Blood Count 18.9 10^3/uL (3.5-10.8)
[2021-08-30 06:02] LABS: Calcium 8.1 mg/dL (8.6-10.3); Magnesium 1.6 mg/dL (1.9-2.7); Potassium 4.8 mmol/L (3.5-5.0)
[2021-08-30] MEDS ORDERED: Magnesium Sulf 4 GM/100 ML IV 4,000 MG/100 ML BAG IVPB ONE (08:00)
[2021-08-30] MEDS: Mometasone/Formoter 200/5 MDI INH SCH (08:28)
[2021-08-30] MEDS: SPIRIVA Respimat (tiotropium) 2.5 mcg/inh Inhaler INH SCH (08:28)
[2021-08-30] MEDS: oxyCODONE SR 10 mg TAB PO SCH (08:45)
[2021-08-30 16:01] VITALS: BP 103/61
== END 2021-08-30 17:50 | disposition home health service (06) | DRG 871 ==
LOC: ED 08:16 → SUATTDRO 14:52 → EDHOLD 14:52 → MED 18:30
PROVIDERS: ADMIT Hospitalist; ATTEND Internal Medicine

== ENCOUNTER 2021-08-31 10:50 | Inpatient (IN) ==
[2021-08-31] MEDS ORDERED: Vancomycin 1,000 MG in NS 0.9% 250 ml 250 ML IVPB ONE (11:08)
[2021-08-31] MEDS ORDERED: Cefepime 1 GM in Dextrose 1 GM/50 ML BAG IV ONE (11:08)
[2021-08-31] MEDS ORDERED: Lactated Ringers 1000 ml BAG 1,000 ML IV ONE ×2 (11:09→14:05)
[2021-08-31 11:53] LABS: Hematocrit 35 % (35-47); Hemoglobin 11.4 g/dL (12.0-16.0); Mean Corpuscular HGB Conc 32 g/dL (31-36); Mean Corpuscular Hemoglobin 28 pg (27-31); Mean Corpuscular Volume 85 fL (80-97); Mean Platelet Volume 7.8 fL (7.4-10.4); Platelet Count 528 10^3/uL (150-450); Red Blood Count 4.14 10^6 /uL (3.70-4.87); Red Cell Distribution Width 27 % (10-15); White Blood Count 19.6 10^3/uL (3.5-10.8)
[2021-08-31 11:54] LABS: ABS Basophils 0.1 10^3/ul (0-0.2); ABS Lymphocytes 1.4 10^3/ul (1.0-4.8); ABS Monocytes 0.7 10^3/ul (0-0.8); ABS Neutrophils 17.5 10^3/ul (1.5-7.7); Eosinophil % 0.1 %; Lymphocyte % 7.1 %
[2021-08-31 12:04] LABS: Activated Partial Thrombo Time 25.8 seconds (26.0-38.0); INR 1.13 (0.86-1.15)
[2021-08-31 12:13] LABS: Anisocytosis 2+; Hypochromasia 1+; Macrocytosis 1+; Polychromasia 1+
[2021-08-31 12:30] LABS: Albumin 3.3 g/dL (3.2-5.2); Albumin/Globulin Ratio 1.2 (1-3); C Reactive Protein 22.07 mg/L (<8.01); Calcium 8.4 mg/dL (8.6-10.3); Globulin 2.7 g/dL (2-4); Potassium 4.3 mmol/L (3.5-5.0); Total Bilirubin 0.5 mg/dL (0.2-1.0); eGFR CKD-EPI 97.5 (>60)
[2021-08-31 12:38] LABS: Urine Appearance Cloudy; Urine Bilirubin Negative (Negative); Urine Blood 2+ (Negative); Urine Color Yellow; Urine Glucose Negative (Negative); Urine Ketones Negative (Negative); Urine Nitrite Negative (Negative); Urine Protein Negative (Negative); Urine Specific Gravity 1.018 (1.002-1.030); Urine Urobilinogen Negative (Negative)
[2021-08-31 12:40] LABS: Urine Amorphous Crystals Present (Absent); Urine Bacteria Absent (Absent); Urine Red Blood Cell 2+(6-10/hpf) (Absent); Urine Squamous Epithelial Cell Present (Absent); Urine White Blood Cell 1+(6-10/hpf) (Absent)
[2021-08-31] MEDS ORDERED: Iohexol 350 (CONTRAST) 500 ML MDV IV ONE (13:04)
[2021-08-31] MEDS: Norepinephrine 16MCG/ML BAGD5W 4,000 MCG/250 ML BAG IV SCH ×3 (15:27→22:21)
[2021-08-31] MEDS ORDERED: Ondansetron 4 mg VIAL 2 MG/ML 2 ml VIAL IV PRN (17:10)
[2021-08-31] MEDS: Dexamethasone IV 4 MG/ML VIAL 1 ml VIAL IV SLOW PU SCH (17:49)
[2021-08-31] MEDS ORDERED: Acetaminophen IV 1 GM/100ML 100 ML IV ONE ×2 (18:01→18:30)
[2021-08-31] MEDS ORDERED: Acetaminophen IV 1000 MG/100ML IVPB ONE (18:30)
[2021-08-31] MEDS ORDERED: Lorazepam PYXIS KEY PRN (18:52)
[2021-08-31] MEDS ORDERED: LORazepam 2 mg VIAL 1 ml IV PUSH PRN (18:52)
[2021-08-31] MEDS ORDERED: HYDROmorphone PCA 20 MG/20 ML PCA.SYRING PCA SCH ×2 (19:30→20:24)
[2021-09-01] MEDS: Dexamethasone IV 4 MG/ML VIAL 1 ml VIAL IV SLOW PU SCH ×3 (01:15→18:36)
[2021-09-01] MEDS: Norepinephrine 16MCG/ML BAGD5W 4,000 MCG/250 ML BAG IV SCH (06:25)
[2021-09-01] MEDS: HYDROmorphone 0.5 MG/0.5 ML SYRINGE IV PRN ×3 (06:37→21:45)
[2021-09-01] MEDS ORDERED: Lidocaine 1% MPF 5 ML VIAL INJ ONE (12:05)
[2021-09-01] MEDS ORDERED: Cefepime ADVAN 1 GM in NS 0.9% 50 ML 50 ML IVPB SCH (13:00)
[2021-09-01] MEDS: Cefepime 1 GM in Dextrose 1 GM/50 ML BAG IV SCH (14:18)
[2021-09-02] MEDS: Cefepime 1 GM in Dextrose 1 GM/50 ML BAG IV SCH (01:39)
[2021-09-02] MEDS: Dexamethasone IV 4 MG/ML VIAL 1 ml VIAL IV SLOW PU SCH ×3 (01:39→17:08)
[2021-09-02] MEDS: HYDROmorphone 0.5 MG/0.5 ML SYRINGE IV PRN ×3 (07:49→19:20)
[2021-09-02] MEDS: fentaNYL PATCH 25 MCG/HR 1 PATCH TRANSDERM SCH (08:34)
[2021-09-02] MEDS ORDERED: Piperacillin/Tazobac ADVAN 3.375 GM in NS 0.9% 100 ml BAG 100 ML IV ONE (09:15)
[2021-09-02] MEDS ORDERED: Zosyn per Pharmacy NOTE FOLLOW UP SCH (10:00)
[2021-09-02] MEDS: Meropenem 1 GM PREMIX 1 GM/50 ML BAG IV SCH ×2 (11:36→17:08)
[2021-09-02] MEDS: fentaNYL Patch Check Q Shift NOTE FOLLOW UP SCH (19:13)
[2021-09-02 20:31] VITALS: BP 108/62
[2021-09-03] MEDS: Dexamethasone IV 4 MG/ML VIAL 1 ml VIAL IV SLOW PU SCH ×2 (02:08→09:00)
[2021-09-03] MEDS: Meropenem 1 GM PREMIX 1 GM/50 ML BAG IV SCH ×3 (02:08→17:15)
[2021-09-03] MEDS: HYDROmorphone 0.5 MG/0.5 ML SYRINGE IV PRN ×5 (03:08→21:15)
[2021-09-03] MEDS: fentaNYL Patch Check Q Shift NOTE FOLLOW UP SCH ×2 (06:50→18:41)
[2021-09-03] MEDS ORDERED: Ondansetron ODT 4 mg TAB 4 MG TAB SL PRN (11:36)
[2021-09-04] MEDS: Meropenem 1 GM PREMIX 1 GM/50 ML BAG IV SCH ×3 (02:10→18:56)
[2021-09-04] MEDS: HYDROmorphone 0.5 MG/0.5 ML SYRINGE IV PRN ×6 (02:10→22:21)
[2021-09-04] MEDS: fentaNYL Patch Check Q Shift NOTE FOLLOW UP SCH ×2 (07:14→18:56)
[2021-09-05] MEDS: HYDROmorphone 0.5 MG/0.5 ML SYRINGE IV PRN ×3 (00:54→06:17)
[2021-09-05] MEDS: Meropenem 1 GM PREMIX 1 GM/50 ML BAG IV SCH (03:04)
[2021-09-05] MEDS: fentaNYL Patch Check Q Shift NOTE FOLLOW UP SCH (07:13)
[2021-09-05] MEDS: fentaNYL PATCH 25 MCG/HR 1 PATCH TRANSDERM SCH (08:26)
== END 2021-09-05 10:35 | disposition hospice, home (50) | DRG 871 ==
LOC: ED 10:50 → ICU 16:14 → SUATTDRO 16:14 → MED 09-02 10:40
PROVIDERS: ADMIT Internal Medicine; ATTEND Family Medicine